=== PATIENT | male | born 1995 | race Caucasian/White ===

== ENCOUNTER 2017-08-20 07:51 | Inpatient (IN) | payer BC, OTHER ==
[~2017-08-20] VITALS: Ht 167.6 cm; Wt 63.5 kg
[~2017-08-20 07:51] MED LIST: DICY20TA28 PO; Diphenhydramine Hcl PO; Gabapentin PO; HYDR-3895 PO; Ibuprofen PO; SERT50TA PO
--- NOTE | 2017-08-21 20:30 | NUR ---
INTAKE ASSESSMENT: Pt presented in intake to detox from Alcohol,Heroin,Xanax,Marijuana and Meth. Pt is A/O X 3;speech is clear;ambulates with a steady gait;V/S are stable;no s/s of acute distress noted.Pt is in a stable condition to proceed to [facility].
[2017-08-21] MEDS ORDERED: MAG HYDROX/AL HYDROX/SIMETH 30 ML LIQUID UDC PO PRN (20:45)
[2017-08-21] MEDS ORDERED: diphenhydrAMINE 50 MG CAPSULE PO PRN (20:45)
[2017-08-21] MEDS ORDERED: LOPERAMIDE HCL 2 MG CAPSULE PO PRN ×2 (20:45)
[2017-08-21] MEDS ORDERED: DICYCLOMINE HCL 20 MG TABLET PO PRN (20:45)
[2017-08-21] MEDS ORDERED: ONDANSETRON 4 MG/2 ML VIAL IM PRN (20:45)
[2017-08-21] MEDS ORDERED: BUPRENORPHINE HCL 2 MG TAB.SUBL SL PRN (20:45)
[2017-08-21] MEDS ORDERED: MIRALAX 17 GM POWD.PACK PO PRN (20:45)
[2017-08-21] MEDS ORDERED: ACETAMINOPHEN 325 MG TABLET PO PRN (20:45)
[2017-08-21] MEDS ORDERED: HYDROXYZINE PAMOATE 25 MG CAPSULE PO PRN (20:45)
[2017-08-21] MEDS ORDERED: METHOCARBAMOL 750 MG TABLET PO PRN (20:45)
[2017-08-21] MEDS ORDERED: LORAZEPAM 2 MG/1 ML VIAL IM PRN (20:45)
[2017-08-21] MEDS ORDERED: DOCUSATE SODIUM 250 MG CAPSULE PO PRN (20:45)
[2017-08-21] MEDS ORDERED: LORAZEPAM 1 MG TABLET PO PRN ×2 (20:45)
[2017-08-21] MEDS ORDERED: ONDANSETRON ODT 4 MG TAB.RAPDIS SL PRN (20:45)
[2017-08-21] MEDS ORDERED: CLONIDINE HCL 0.1 MG TABLET PO PRN (20:45)
[2017-08-21] MEDS ORDERED: IBUPROFEN 600 MG TABLET PO PRN (20:45)
[2017-08-21] MEDS ORDERED: MAGNESIUM HYDROXIDE 30 ML LIQUID UDC PO PRN (20:45)
[2017-08-21 21:28] LABS: *AMPHETAMINE, URINE POSITIVE (NEGATIVE); *BARBITURATE, URINE NEGATIVE (NEGATIVE); *CANNABINOID, URINE POSITIVE (NEGATIVE); *COCCAINE, URINE NEGATIVE (NEGATIVE); *PHENCYCLIDINE SCREEN,URINE NEGATIVE (NEGATIVE)
[2017-08-21] MEDS ORDERED: LORAZEPAM 1 MG TABLET PO ONE (21:45)
[2017-08-21 21:55] LABS: BASOPHILS # (AUTO) 0.1 K/uL (0.0-8.0); BASOPHILS % (AUTO) 1.4 % (0.0-2.0); EOSINOPHILS # (AUTO) 0.2 K/uL (0.0-0.7); EOSINOPHILS % (AUTO) 2.5 % (0.0-7.0); HEMATOCRIT 47.9 % (40-50); HEMOGLOBIN 16.4 G/DL (14.0-18.0); LYMPHOCYTES # (AUTO) 2.1 K/UL (0.8-4.8); LYMPHOCYTES % (AUTO) 23.6 % (20.5-51.5); MEAN CORPUSCULAR HEMOGLOBIN 30.6 UUG (27.0-31.0); MEAN CORPUSCULAR HGB CONC 34 g/dL (32.0-37.0); MEAN CORPUSCULAR VOLUME 89.5 FL (82.0-92.0); MONOCYTES # (AUTO) 0.9 K/UL (0.1-1.30); MONOCYTES % (AUTO) 10.5 % (0.0-11.0); NEUTROPHILS # (AUTO) 5.4 K/UL (1.8-8.9); PLATELET COUNT (AUTO) 200 K/UL (150-450); RED BLOOD CELL COUNT(AUTO) 5.35 MIL/UL (4.7-6.1); WHITE BLOOD COUNT (AUTO) 8.7 K/UL (4.0-11.2)
[2017-08-21 21:59] LABS: *OPIATE, URINE POSITIVE (NEGATIVE)
--- NOTE | 2017-08-21 22:00 | NUR ---
ADMISSION NOTE-- HT - 5 FEET; 6 INCHES. WT - 140 POUNDS. V/S : B/P=122/69; T=97.3;P=90;R=16;O2 SAT= 98%. COWS=5 / CIWA=5. Admitting 22 y/o male to [facility] for medically supervised withdrawals from HEROIN,ALCOHOL,XANAX,MARIJUANA AND METH dependency.Pt is A/O X 3.He was discharged from [facility] in September 2016.He has been sober for approximately 8 months;then relapsed 3 months ago and has been using the above mentioned drugs on a daily basis since then.He is allergic to bees and Trazodone.Reports PMH of anxiety,depression,bipolar disorder.asthma and seizures x 2 d/t withdrawals.Placed on a regular diet,FULL CODE status and fall/seizure precautions.Skin is intact,warm and dry to touch; breathing is even and non labored;no c/o SOB or wheezing noted; abdomen is soft and palpable with b/s present x 4.Pt c/o mild head and body ache,chills and abdominal discomfort.No c/o N/V/D/C noted.Pt does not have a PCP,denies taking any medications at home and did not bring any medications with him.Pt oriented to room and unit,unit rules explained,all safety measures are in place per hospital policy,bed is locked in the lowest position with side rails up x 2;call light within reach.Dr Amaral notified. DRUG USE HX-- 1) ALCOHOL-PT REPORTS DRINKING 2 SHOTS OF ALCOHOL DAILY FOR THE PAST 3 MONTHS. LAST DRINK WAS ON 08/21/17. 2) HEROIN - PT USES 1/2 TO 1 GRAM OF HEROIN IV/SMOKE DAILY FOR PAST 3 MONTHS. LAST USED 1 GRAM ON 08/21 3) XANAX- PT REPORTS TAKING 2 TO 4 MG OF XANAX DAILY FORE PAST 3 MONTHS. LAST TAKEN 2 MGS PO ON 08/18/17. 4) MARIJUANA- PT SMOKES 3 GRAMS DAILY FOR Past 3 MONTHS. LAST USED ON 08/21/17 5) METH- PT USED 1/2 TO 1 GRAM IV/SMOKE DAILY FOR PAST 3 MONTHS. LAST USED ON 08/21/17 PT STATED HIS LONGEST SOBER PERIOD WAS FOR 8 MONTHS FROM SEPTEMBER TP APRIL 2017. DETOX HX 1)[facility] IN SEPTEMBER 2016 2)[facility] IN 2015. 3)[facility] IN 2009,2010,2011 AND 2014. 4)[facility] IN [place],
[2017-08-21 22:01] LABS: BILIRUBIN,TOTAL 0.8 mg/dL (0.2-1.0); CREATININE 1.1 mg/dL (0.6-1.3); POTASSIUM 3.6 mmol/L (3.5-5.1); TOTAL PROTEIN, SERUM 6.8 g/dL (6.4-8.2)
[2017-08-22] VITALS: BP 130/76
[2017-08-22 04:00] VITALS: BP 128/77
--- NOTE | 2017-08-22 06:45 | NUR ---
END OF SHIFT Pt is 22 y/o male admitted for HEROIN,ALCOHOL,XANAX,MARIJUANA AND METH dependency.Pt is A/O X 3.He is allergic to bees and Trazodone.Reports PMH of anxiety,depression,bipolar disorder.asthma and seizures x 2 d/t withdrawals.Placed on a regular diet,FULL CODE status and fall/seizure precautions.Skin is intact,warm and dry to touch; pt weas given one time dose of Ativan 2 mg PO as ordered;he slept8 hrs,fluid intake was 828 mls,voided x 2.Pt will be starting on 5 day Ativan and 5 day Subutex tapers today.Last COWS=5,CIWA=3.PO fluids encouraged as tolerated; Bed on lowest position with side rails x2 up for safety. Call light within reach. No distress noted at this time.Will endorse to day shift nurse.
[2017-08-22 08:00] VITALS: BP 123/79
--- NOTE | 2017-08-22 08:10 | NUR ---
START OF SHIFT: RECEIVED PT A/O X 4. HE REPORTS BODY ACHES,CHILLS,ANXIETY,SWEATS,IRRITABILITY AND RESTLESSNESS. COWS 14 CIWA 5. SUBUTEX TAPER INITIATED ALONG WITH ATIVAN TAPER. ENCOURAGED INCREASED FLUIDS AND REST TODAY. PPD PLANTED TO [facility]. WILL CONTINUE TO MONITOR AND MANAGE S/S OF W/D.
[2017-08-22] MEDS ORDERED: TUBERCULIN,PURIF.PROT.DERIV. 5 TU/0.1 ML TEST ID ONE (09:00)
[2017-08-22] MEDS: LORAZEPAM 1 MG TABLET PO SCH ×4 (09:17→21:08)
[2017-08-22] MEDS: BUPRENORPHINE HCL 2 MG TAB.SUBL SL SCH ×4 (09:18→21:09)
[2017-08-22 12:00] VITALS: BP 131/79
[2017-08-22 16:00] VITALS: BP 119/75
--- NOTE | 2017-08-22 18:32 | NUR ---
END OF SHIFT: PT STARTED ON SUBUTEX/ATIVAN TAPER THIS AM. LAST COWS 6 CIWA 4. HE STATES THE DETOX MEDS ARE EFFECTIVE. NO PRNS GIVEN. PPD TO BE READ 08/24/17. HE RESTED AND INCREASED FLUID INTAKE ENCOURAGED. WILL PASS SHIFT REPORT TO ONCOMING NIGHT NURSE.
--- NOTE | 2017-08-22 19:30 | NUR ---
START OF SHIFT Pt is 22 y/o male admitted for HEROIN,ALCOHOL,XANAX,MARIJUANA AND METH dependency.Pt is A/O X 3.He is allergic to bees and Trazodone.Reports PMH of anxiety,depression,bipolar disorder.asthma and seizures x 2 d/t withdrawals.Placed on a regular diet,FULL CODE status and fall/seizure precautions. Continues on 5 day Ativan and 5 day Subutex tapers as ordered.Last COWS=6,CIWA=4.Pt received resting in bed with eyes closed,responsive on approach;Pt states that the medications are helping him with the withdrawal symptoms.PO fluids encouraged as tolerated; Bed on lowest position with side rails x2 up for safety. Call light within reach. Will continue to monitor.
[2017-08-22 20:00] VITALS: BP 103/84
[2017-08-22] MEDS: GABAPENTIN 300 MG CAPSULE PO SCH (21:09)
[2017-08-23] VITALS: BP 108/67
--- NOTE | 2017-08-23 | NUR ---
COWS/CIWA DEFERRED D/T SLEEP. V/S ARE STABLE,PT IN DEEP SLEEP,COWS AND CIWA DEFERRED.
[2017-08-23 04:00] VITALS: BP 105/72
--- NOTE | 2017-08-23 04:00 | NUR ---
COWS/CIWA DEFERRED D/T SLEEP. V/S ARE STABLE,PT IN DEEP SLEEP,COWS AND CIWA DEFERRED.
--- NOTE | 2017-08-23 07:09 | NUR ---
END OF SHIFT Pt is 22 y/o male admitted for HEROIN,ALCOHOL,XANAX,MARIJUANA AND METH dependency.Pt is A/O X 3.He is allergic to bees and Trazodone.Reports PMH of anxiety,depression,bipolar disorder.asthma and seizures x 2 d/t withdrawals; on a regular diet,FULL CODE status and fall/seizure precautions. Continues on 5 day Ativan and 5 day Subutex tapers as ordered.Last COWS=5,CIWA=3.No prn meds given.Pt slept 10 hrs,fluid intake was 355 mls,voided x 1.PO fluids encouraged as tolerated; Bed on lowest position with side rails x2 up for safety. Call light within reach. Will continue to monitor.
--- NOTE | 2017-08-23 07:31 | NUR ---
START OF SHIFT Received report from security shift supervisor nurse. 22 year old male patient admitted on 08/21/17 for heroin, ETOH, Xanax, Methamphetamine and marijuana dependence. Pt has been placed on a 5 day Subutex and 5 day Ativan taper and is tolerating well. S/S of acute withdrawals are being well managed by ordered medications. No PRN medications needed or administered at night. Pt slept for 10 hours. Most recent COWS are 5, CIWA 3. All needs met at this time, will continue to monitor.
[2017-08-23 08:06] VITALS: BP 121/60
[2017-08-23] MEDS: BUPRENORPHINE HCL 2 MG TAB.SUBL SL SCH ×3 (09:30→21:06)
[2017-08-23] MEDS: GABAPENTIN 300 MG CAPSULE PO SCH ×3 (09:30→21:05)
[2017-08-23] MEDS: LORAZEPAM 1 MG TABLET PO SCH ×3 (09:30→21:05)
[2017-08-23 12:07] LABS: HEPATITIS B SURFACE AG Negative (Negative)
[2017-08-23 12:42] VITALS: BP 121/73
[2017-08-23 16:57] VITALS: BP 131/73
--- NOTE | 2017-08-23 19:13 | NUR ---
END OF SHIFT Pt remains stable throughout shift. Most recent COWS is 8 and CIWA 7, pt tolerates ordered medications well. Education provided on medications, side effects, and importance of smoking cessation. No PRN meds needed or administered throughout shift. V/S remain WNL. Pt reports having BM x1. Pt encouraged to attend groups and activities and states "maybe tomorrow, I just want to rest today." Encouraged pt to verbalize feelings. Safety measures remain in place, night nurse to continue monitoring.
--- NOTE | 2017-08-23 19:15 | NUR ---
START OF SHIFT Received 22 year old male patient admitted on 08/21/17 for Opiate, ETOH, Benzodiazepine, Marijuana and Methamphetamine dependency. Pt is full code with allergy to bees and trazodone. He reports a PMHx of anxiety, depression, bipolar, asthma, and seizure related to w/d x2. He reports using Heroin 1/2-1 gram daily for 3 months. Last dose was 1 gram on 08/21/17. ETOH 2 shots daily for 3 months. Last dose was 750mL on 08/21/17. Xanax 2-4 mg daily for 3 months. Last dose was 2 mg on 08/18/17. Marijuana 3 grams daily for 3 months. Last dose was 1 gram on 08/21/17. And Methamphetamine 1/2-1 gram daily for 3 months. Last dose was 1 gram on 08/21/17. He is receiving a 5 day Subutex and 5 day Ativan taper and is tolerating well. Per endorsement, he did not receive or request any PRN medications. Pt is alert and oriented x4, breathing is even and unlabored. Safety measures in place. Will continue to monitor.
[2017-08-23 20:00] VITALS: BP 113/83
[2017-08-23] MEDS: CLONIDINE HCL 0.1 MG TABLET PO SCH (21:05)
[2017-08-24] VITALS: BP 105/62
--- NOTE | 2017-08-24 | NUR ---
COWS/CIWA DEFERRED Pt lying in bed with eyes closed noted to be asleep. Breathing even and unlabored. Safety measures in place. Will monitor.
[2017-08-24 04:00] VITALS: BP 110/68
--- NOTE | 2017-08-24 04:00 | NUR ---
COWS/CIWA DEFERRED Pt lying in bed with eyes closed noted to be asleep. Breathing even and unlabored. Safety measures in place. Will monitor.
--- NOTE | 2017-08-24 06:59 | NUR ---
END OF SHIFT Pt is a 22 year old male patient admitted on 08/21/17 for Opiate, ETOH, Benzodiazepine, Marijuana and Methamphetamine dependency. Pt is full code with allergy to bees and trazodone. He continues on a 5 day Subutex and 5 day Ativan taper and is tolerating well. He did not receive or request PRN medications. He slept a total of 8hrs, Intake: 1350mL, Void: x2, BM:0, COWS:8, CIWA:7. Pt remains alert and oriented x4, breathing is even and unlabored. Safety measures in place. Endorsed to AM shift.
--- NOTE | 2017-08-24 07:37 | NUR ---
START OF SHIFT NOTE Received report from night nurse, 22 year old male admitted for Opioid, ETOH, Benzo, Marijuana and Methamphetamine dependence. Patient cont with 5 days Subutex taper and 5 days Ativan taper tolerating well. Per endorsement patient did not receive any PRN'S, slept for 8 hours, and his Last CIWA-7, COWS-8 at 1999. Received patient in room alert and oriented x 4. Educated patient on the current plan of care for the day and medication regimen. Safety measures in place. call light kept with in reach, Will continue to monitor.
[2017-08-24 08:00] VITALS: BP 128/70
[2017-08-24] MEDS: LORAZEPAM 1 MG TABLET PO SCH ×3 (08:29→20:22)
[2017-08-24] MEDS: GABAPENTIN 300 MG CAPSULE PO SCH ×3 (08:29→20:22)
[2017-08-24] MEDS: CLONIDINE HCL 0.1 MG TABLET PO SCH ×2 (08:30→20:23)
[2017-08-24] MEDS ORDERED: BUPRENORPHINE HCL 2 MG TAB.SUBL SL SCH (09:00)
[2017-08-24 12:00] VITALS: BP 115/65
[2017-08-24] MEDS: BUPRENORPHINE HCL 2 MG TAB.SUBL SL SCH ×2 (14:01→20:22)
[2017-08-24 16:00] VITALS: BP 111/56
--- NOTE | 2017-08-24 19:03 | NUR ---
END OF SHIFT NOTE Patient cont with 5 days Subutex and 5 days Ativan taper tolerating well. During shift patient did not receive any PRN. Vital signs remained WNL. Patient attend groups and activities. Encourage Po fluids as tolerated. Last COWS score was 4 and CIWA 4 @ 1600. All needs attended, Safety measures in place, call light within reach. Patient endorsed to night nurse in stable condition.
[2017-08-24 20:00] VITALS: BP 142/82
--- NOTE | 2017-08-24 20:00 | NUR ---
Start of Shift Pt is a 22 year old male admitted for ETOH/Benzo/Opiate dependence, placed on 5 day Ativan and 5 day Subutex taper. PMH: anxiety, depression, bipolar, asthma and sx history d/t withdrawal. Pt reports allergies to Trazodone and bee pollen, regular diet, fall/seizure precautions and full code. Upon assessment pt reports anxiety, skin is flushed, reports mild chills and muscle aches, respirations even/unlabored, denies SOB/chest pain, denies n/v/d, medications due. Safety measures in place, call light within reach, side rails up x2, bed locked and in low position. Will continue to monitor.
[2017-08-25] VITALS: BP 102/67
--- NOTE | 2017-08-25 | NUR ---
CIWA/COWS deferred d/t pt sleeping to assess while pt is awake as ordered. BP 102/67, pulse 80, resp 16, SpO2 98% room air, temp 98.[address], will continue to monitor.
--- NOTE | 2017-08-25 04:00 | NUR ---
ORIONWA/MARISA deferred d/t pt sleeping to assess while pt is awake as ordered. Pt refused to be woken up for [address] Safety measures in [address], will continue to monitor.
--- NOTE | 2017-08-25 07:10 | NUR ---
End of Shift Pt is a 22 year old male admitted for ETOH/Benzo/Opiate dependence, placed on 5 day Ativan and 5 day Subutex taper. PMH: anxiety, depression, bipolar, asthma and sx history d/t withdrawal. Pt reports allergies to Trazodone and bee pollen, regular diet, fall/seizure precautions and full code. During shift, pt reported anxiety, skin flushed, reported mild chills and muscle aches scheduled taper medications administered, COWS 2 AND CIWA 5. No PRN medications administered during shift. Pt slept for 8 hours, intake of 1210 ml PO, voids x3 and stool x0. Safety measures in place, call light within reach, side rails up x2, bed locked and in low position. Endorsed to day shift nurse.
--- NOTE | 2017-08-25 07:59 | NUR ---
START OF SHIFT NOTE Received report from night nurse, 22 year old male admitted for Opioid, ETOH, Benzo, Marijuana and Methamphetamine dependence. Patient cont with 5 days Subutex taper and 5 days Ativan taper tolerating well. Per endorsement patient did not receive any PRN'S, slept for 8 hours, and his Last CIWA-5, COWS-2at 1999. Received patient in room alert and oriented x 4. Educated patient on the current plan of care for the day and medication regimen. Safety measures in place. call light kept with in reach, Will continue to monitor.
[2017-08-25 08:00] VITALS: BP 106/62
[2017-08-25] MEDS: CLONIDINE HCL 0.1 MG TABLET PO SCH ×2 (09:00→20:35)
[2017-08-25] MEDS ORDERED: LORAZEPAM 1 MG TABLET PO SCH (09:00)
[2017-08-25] MEDS ORDERED: BUPRENORPHINE HCL 2 MG TAB.SUBL SL SCH (09:00)
[2017-08-25] MEDS: GABAPENTIN 300 MG CAPSULE PO SCH ×3 (09:00→20:35)
--- NOTE | 2017-08-25 09:50 | NUR ---
REFUSED MEDICATIONS Patient refused all of his scheduled morning medications. patient stated "I am feeling fine i don't want any medications". Risk and benefits explained x3 but patient continued to refuse. notified. Will cont to monitor.
[2017-08-25 12:00] VITALS: BP 117/60
--- NOTE | 2017-08-25 14:02 | NUR ---
REFUSED MED Patient refused his scheduled gabapentin, offered x3 Risk and benefits explained, patient cont to refused. MD notified.
[2017-08-25] MEDS ORDERED: GABA-534 PO (15:19)
[2017-08-25] MEDS ORDERED: IBUP-1955 PO (15:19)
[2017-08-25] MEDS ORDERED: DIPH50CA37 PO (15:19)
[2017-08-25] MEDS ORDERED: METH-406 PO (15:19)
[2017-08-25] MEDS ORDERED: HYDR-3895 PO (15:19)
[2017-08-25] MEDS ORDERED: CLON0.1T14 PO (15:19)
[2017-08-25 16:00] VITALS: BP 131/80
--- NOTE | 2017-08-25 19:01 | NUR ---
END OF SHIFT NOTE Patient completed his Subutex/ Ativan taper tolerated well. During shift patient did not receive any PRN. Vital signs remained WNL. Patient attend groups and activities. Encourage Po fluids as tolerated. Last COWS score was 2 and CIWA 2 @ 1600. All needs attended, Patient scheduled for discharge in AM. Safety measures in place, call light within reach. Patient endorsed to night nurse in stable condition.
--- NOTE | 2017-08-25 19:30 | NUR ---
Start of Shift Note: Report received from day shift nurse. Pt is a 22M, admitted for ETOH/Opiate/Benzo/Methamphetamine Dependency on 08/21/17. Pt was in group activity upon start of shift. Pt is AOx4 without s/s of acute distress noted. Pt is full code, on regular diet, and on fall/seizure precaution. Pt noted with allergy to Bees and Trazodone. Pt reports hx of Anxiety, Depression, Bipolar, Asthma, and Sz r/t withdrawals. Pt has finished 5-day Subutex and Ativan taper to manage withdrawal symptoms. Per day shift nurse, pts last COWS was 2 and last CIWA was 2 at 1600. Bed in lowest position. Side rails up x2. Call light functioning and within reach. All needs attended and met. Will continue to monitor.
[2017-08-25 20:00] VITALS: BP 135/72
[2017-08-25 20:35] VITALS: BP 135/72
--- NOTE | 2017-08-26 | NUR ---
CIWA and COWS Deferred, Vitals Refused: Pt in bed with eyes closed. Pt refused vitals to be taken at this time. Respirations even and unlabored. RR: 16. Call light functioning and within reach. All needs attended and met. Will continue to monitor.
--- NOTE | 2017-08-26 06:54 | NUR ---
End of Shift Notes: Pt is 22M, admitted for ETOH/Opiate/Benzo/Methamphetamine Dependency on 08/21/17. Pt is full code, on regular diet, and on fall/seizure precaution. Pt noted with allergy to Bees and Trazodone. Pt reports hx of Anxiety, Depression, Bipolar, Asthma, and Sz r/t withdrawals. Pt is scheduled to leave today. Pt slept for 4 hours. Respirations even and unlabored. Last COWS score was 1 and CIWA was 1. No N/V noted during the shift. Fall and Sz precautions observed. Bed in lowest position. Side rails up x2. Call light functioning and within reach. All needs attended and met. Will endorse to day shift nurse.
--- NOTE | 2017-08-26 07:30 | NUR ---
start of shift note: received pt from maintenance supervisor 2nd shift nurse, pt is admitted to [facility] for opiate/etoh/benzo withdrawal/dependence. pt's last cows 1 and ciwa 1. pt is set to discharge today. will assist pt in discharging and continue to monitor pt for any changes.
[2017-08-26] MEDS: CLONIDINE HCL 0.1 MG TABLET PO SCH (08:42)
[2017-08-26] MEDS: GABAPENTIN 300 MG CAPSULE PO SCH (08:43)
[2017-08-26] MEDS ORDERED: LORAZEPAM 1 MG TABLET PO SCH (09:00)
[2017-08-26] MEDS ORDERED: BUPRENORPHINE HCL 2 MG TAB.SUBL SL SCH (09:00)
--- NOTE | 2017-08-26 09:21 | NUR ---
discharge note: pt left the unit in stable condition no s/s of pain or discomfort or any withdrawal symptoms. pt refused morning medication administration. V/S WNL. pt teaching administered and pt verbalized understanding. pt will be transferred to [facility] via private car
== END 2017-08-26 09:21 | disposition other institution (70) | DRG 895 ==
LOC: SRC 08-21 19:24
PROVIDERS: ADMIT Internal Medicine; ATTEND Internal Medicine
PROC: HZ2ZZZZ Detoxification Services for Substance Abuse Treatment (ICD-10-PCS; principal; 2017-08-21)
PROC: HZ41ZZZ Group Counseling for Substance Abuse Treatment, Behavioral (ICD-10-PCS; 2017-08-25)
DX: F10.230 Alcohol dependence with withdrawal, uncomplicated (principal); F39 Unspecified mood [affective] disorder; I15.9 Secondary hypertension, unspecified; B18.2 Chronic viral hepatitis C; F11.23 Opioid dependence with withdrawal; F13.230 Sedative, hypnotic or anxiolytic dependence with withdrawal, uncomplicated; Y90.1 Blood alcohol level of 20-39 mg/100 ml; F15.23 Other stimulant dependence with withdrawal; F14.10 Cocaine abuse, uncomplicated; F12.90 Cannabis use, unspecified, uncomplicated; J45.20 Mild intermittent asthma, uncomplicated; Z91.89 Other specified personal risk factors, not elsewhere classified; F41.9 Anxiety disorder, unspecified; F17.210 Nicotine dependence, cigarettes, uncomplicated; Z81.1 Family history of alcohol abuse and dependence; Z81.8 Family history of other mental and behavioral disorders; Z82.69 Family history of other diseases of the musculoskeletal system and connective tissue; R74.0 Nonspecific elevation of levels of transaminase and lactic acid dehydrogenase [LDH]
CPT/HCPCS: 36415; 70030-TC; 80307; 80324; 80349; 80361; 83735; 85025; 86580; 86592; 86705; 86803; 87340; 87806; A4663; G0480